=== PATIENT | male | born 1975 | race African-American/Black ===

== ENCOUNTER 2024-03-23 12:17 | Emergency (ER) | payer OTHER, SELFPAY ==
[2024-03-23 12:24] VITALS: BP 135/89; PULSE 62; RESP 16; TEMP 36.7; O2SAT 99; BMI 24.2
--- NOTE | 2024-03-23 12:39 | CRLHL7_ITS ---
For Patients: As a result of the Century Cures Act, medical imaging exams and procedure reports are released immediately into your electronic medical record. You may view this report before your referring provider. If you have questions, please contact your health care provider. Indication: Left upper quadrant abdominal pain for 5 weeks. Technique: CT of the abdomen and pelvis was performed following the administration of 74 mL Isovue 370. Comparison: None available. Findings: Visualized lung bases: Clear. Liver: Mild hepatic steatosis. Normal gallbladder. No biliary ductal dilation. Pancreas: Unremarkable. Spleen: Unremarkable. Adrenals: Unremarkable. Kidneys: Unremarkable. No nephrolithiasis or hydronephrosis. Aorta/IVC: Mild atherosclerotic aortic calcification without aneurysmal dilation. Lymph nodes: No lymphadenopathy. Bowel: Nonobstructed bowel. Normal appendix. Mild bowel wall thickening involving the distal duodenum and proximal jejunum without significant inflammatory stranding. No intraperitoneal free air. Trace pelvic free fluid. Pelvis: Unremarkable. Bones/body wall: Unremarkable for age. Impression: 1. Mild bowel wall thickening involving the distal duodenum and proximal jejunum, which can be seen in the setting of enteritis (infectious or inflammatory). 2. Mild hepatic steatosis. Please note that all CT scans at this facility use dose modulation, iterative reconstruction, and/or weight-based dosing when appropriate to reduce radiation dose to as low as reasonably achievable. Dictated by Mechelle Kapoor MD @ 03/23/2024 1:24:05 PM (Electronically Signed)
--- NOTE | 2024-03-23 12:40 | ED.ABDPAIN ---
HPI - Abdominal Pain General Chief Complaint: Abdominal Pain Stated Complaint: abdominal pain Time Seen by Provider: 03/23/24 12:18 History of Present Illness HPI narrative: Patient is a 49-year-old gentleman who for the last 4-5 weeks has had persistent left upper quadrant pain. The pain persists through his back but has no reflux symptoms. He has had no fevers no chills no night sweats. He has been trying to treat his symptoms with Prilosec. He does really notice any association with eating or drinking he has had no blood in his stool no changes bowel movements. He is up-to-date on his colonoscopy and has not lost any weight her head night sweats. No weight loss. Related Data Home Medications ?Medication ?Instructions ?Recorded ?Confirmed atorvastatin 20 mg tablet 20 mg PO DAILY 03/23/24 03/23/24 lisinopril 20 1 tab PO DAILY 03/23/24 03/23/24 mg-hydrochlorothiazide 12.5 mg tablet metformin 1,000 mg tablet 1,000 mg PO BID 03/23/24 03/23/24 Previous Rx's ?Medication ?Instructions ?Recorded sucralfate 1 gram tablet 1 g PO BID #60 tabs 03/23/24 Allergies Allergy/AdvReac Type Severity Reaction Status Date / Time No Known Drug Allergies Allergy Verified 03/23/24 13:18 Review of Systems Status of ROS Reports: 10 or more systems reviewed and unremarkable except as noted in History and below [facility] Medical History (Updated 03/23/24 @ 14:04 by Louis Rebolledo MD) Hypertension ?I10 - Essential (primary) hypertension (ICD-10) Diabetes mellitus ?E11.9 - Type 2 diabetes mellitus without complications (ICD-10) Social History Smoking Status: Never smoker How often do you have a drink containing alcohol: never AUDIT-C Alcohol total score: 0 Non-prescribed substance use: denies use Exam Narrative: Exam Narrative: EXAM GENERAL: Patient appears comfortable and well. EYES: No scleral icterus. LYMPH: No supraclavicular or cervical lymphadenopathy. SKIN: Visible skin seen during exam normal or with benign process only. EXT: No dependent lower extremity pedal edema. HEART: Regular rate and rhythm with no murmurs, rubs, or gallops. LUNGS: Clear to auscultation bilaterally with no crackles or wheezes. ABD: Soft, non tender, non distended. PSYCH: Good eye contact, speech is not pressured. Const: Vital Signs, click to edit/add: Vital Signs - 24 hr 03/23/24 12:24 Temperature 98.1 F Pulse Rate [Left P ulse Oximeter] 62 Respiratory Rate 16 Blood Pressure [Ri ght Upper Arm] 135/89 Pulse Oximetry 99 Oxygen Delivery Me thod Room Air Course Course ED Course: Saline lock placed. CBC CMP amylase UA CT abdomen pelvis pending. Vital Signs Vital signs: Initial Vital Signs Temperature 98.1 F 03/23/24 12:24 Temperature Source Temporal Artery Scan 03/23/24 12:24 Pulse Rate 62 03/23/24 12:24 Respiratory Rate 16 03/23/24 12:24 Blood Pressure 135/89 03/23/24 12:24 Blood Pressure Mean 104 03/23/24 12:24 Blood Pressure Position Sitting 03/23/24 12:24 Pulse Oximetry 99 03/23/24 12:24 Oxygen Delivery Method Room Air 03/23/24 12:24 Vital Signs Temperature 98.1 F 03/23/24 12:24 Pulse Rate 62 03/23/24 12:24 Respiratory Rate 16 03/23/24 12:24 Blood Pressure 135/89 03/23/24 12:24 Pulse Oximetry 99 03/23/24 12:24 Oxygen Delivery Method Room Air 03/23/24 12:24 Temperature 98.1 F 03/23/24 12:24 Pulse Rate 62 03/23/24 12:24 Respiratory Rate 16 03/23/24 12:24 Blood Pressure 135/89 03/23/24 12:24 Pulse Oximetry 99 03/23/24 12:24 Oxygen Delivery Method Room Air 03/23/24 12:24 MDM - Abdominal Pain MDM Narrative Medical decision making narrative: Patient is a 49-year-old gentleman with minimal risk factors for peptic ulcer disease who presents with left upper quadrant pain. Lab work is stable. He his CT of the abdomen pelvis shows some thickening in the distal duodenum and proximal jejunum consistent with enteritis. Workup was otherwise unremarkable. This time will have him increase his PPI to twice a day. Also sent in a prescription for sucralfate to take as directed. Differential diagnosis includes but not limited to peptic ulcer disease H pylori gastritis dyspepsia pancreatitis small-bowel obstruction. Lab Data Labs: Lab Results 03/23/24 Range/Units 12:55 WBC 5.55 (4.50-11.00) K/uL RBC 5.29 (4.30-5.90) m/uL Hgb 15.8 (13.5-17.5) gm/dL Hct 47.3 (37.0-53.0) % MCV 89 (80-100) fL MCH 30 (26-34) pg MCHC 33 (32-36) gm/dL RDW Coeff of Nathanael 11.8 (11.5-15.5) % Plt Count 300 (140-440) K/uL Neut % (Auto) 59.9 (42.0-72.0) % Lymph % (Auto) 25.0 (20-44) % Starr % (Auto) 11.5 H (0.0-11.0) % Eos % (Auto) 3.2 (0.0-7.0) % Baso % (Auto) 0.4 (0.0-3.0) % Neut # (Auto) 3.32 (1.7-7.0) K/uL Lymph # (Auto) 1.39 (0.90-2.90) K/uL Starr # (Auto) 0.60 (0.00-0.90) K/UL Eos # (Auto) 0.18 (0.00-0.50) K/uL Baso # (Auto) 0.02 (0.00-0.30) K/uL Abs Immat Gran (auto) 0.00 (0.00-0.30) K/uL Imm/Tot Granulo (auto) 0.0 % Sodium 137 (135-149) mmol/L Potassium 4.0 (3.6-5.1) mmol/L Chloride 100 (96-114) mmol/L Carbon Dioxide 31 (20-32) mmol/L Anion Gap 6 L (7-15) mEq/L BUN 10 (7-30) mg/dL Creatinine 0.9 (0.5-1.5) mg/dL Estimated Creat Clear 87.63 Estimated GFR 103 ml/min Glucose 87 (60-115) mg/dL Calcium 9.8 (8.4-10.6) mg/dL Total Bilirubin 1.1 (0.1-1.5) mg/dL AST 31 (12-35) U/L ALT 37 (4-50) U/L Alkaline Phosphatase 69 (40-150) U/L Total Protein 7.9 (6.0-8.3) g/dL Albumin 5.1 H (3.3-5.0) g/dL Amylase 118 H (18-89) U/L Discharge Plan Discharge Clinical Impression: Enteritis Patient Disposition: Home, Self-Care Condition: Stable Instructions: Enteritis (ED) Additional Instructions: Increase Prilosec [id number] to twice daily. Sucralfate sent to your pharmacy take as directed. Follow-up with your doctor within the next week to discuss Helicobacter pylori stool antigen versus EGD Activity Level: No Restrictions Discharge Diet: Regular Prescriptions: New sucralfate 1 gram tablet 1 g PO BID Qty: 60 2RF No Action atorvastatin 20 mg tablet 20 mg PO DAILY lisinopril-hydrochlorothiazide 20-12.5 mg tablet 1 tab PO DAILY metformin 1,000 mg tablet 1,000 mg PO BID Follow Up/Referrals: Cali Salcedo MD [Primary Care Provider] - Stand Alone Forms: [employer] Info Instructions
[2024-03-23 13:13] LABS: Basophils Absolute Auto 0.02 K/uL (0.00-0.30); Basophils Percent Auto 0.4 % (0.0-3.0); Eosinophils Absolute Auto 0.18 K/uL (0.00-0.50); Eosinophils Percent Auto 3.2 % (0.0-7.0); Hematocrit 47.3 % (37.0-53.0); Hemoglobin* 15.8 gm/dL (13.5-17.5); Lymphocytes Absolute Auto 1.39 K/uL (0.90-2.90); Mean Corpuscular HGB Conc 33 gm/dL (32-36); Mean Corpuscular Hemoglobin 30 pg (26-34); Mean Corpuscular Volume 89 fL (80-100); Monocytes Percent Auto 11.5 % (0.0-11.0); Neutrophils Absolute Auto 3.32 K/uL (1.7-7.0); Neutrophils Percent Auto 59.9 % (42.0-72.0); Platelet Count* 300 K/uL (140-440); RDW Coefficient of Variation % 11.8 % (11.5-15.5); Red Blood Count 5.29 m/uL (4.30-5.90); White Blood Count* 5.55 K/uL (4.50-11.00)
[2024-03-23 13:19] LABS: Slide Review Reflex No
[2024-03-23 13:35] LABS: Chloride* 100 mmol/L (96-114)
[2024-03-23 13:36] LABS: Albumin* 5.1 g/dL (3.3-5.0); Sodium* 137 mmol/L (135-149)
[2024-03-23 13:38] LABS: Amylase* 118 U/L (18-89); Anion Gap 6 mEq/L (7-15); Bilirubin Total* 1.1 mg/dL (0.1-1.5); Carbon Dioxide* 31 mmol/L (20-32); Creatinine* 0.9 mg/dL (0.5-1.5); Est. Creatinine Clearance* 87.63; Estimated Glomerular Filt Rate 103 ml/min
[2024-03-23 13:39] LABS: Alanine Aminotransferase* 37 U/L (4-50); Alkaline Phosphatase* 69 U/L (40-150); Aspartate Amino Transferase* 31 U/L (12-35); Blood Urea Nitrogen* 10 mg/dL (7-30); Calcium* 9.8 mg/dL (8.4-10.6); Glucose* 87 mg/dL (60-115); Total Protein* 7.9 g/dL (6.0-8.3)
[2024-03-23 14:14] LABS: Appearance Urine Clear (Clear); Bilirubin Urine Negative (Negative); Blood Urine Trace-intact (Negative); Color Urine Yellow (Yellow); Glucose Urine Negative (Negative); Ketones Urine Negative (Negative); Leukocyte Esterase Urine Negative (Negative); Nitrite Urine Negative (Negative); Protein Urine Negative (Negative); Specific Gravity Urine 1.015 (1.000-1.030); Urobilinogen Urine 0.2 (0.2-1.0)
[2024-03-23 14:37] LABS: RBC Urine 0-2 (0-2); WBC Urine 0-2 (0-5)
== END 2024-03-23 14:28 | disposition home or self-care (01) ==
PROVIDERS: Emergency Provider Internal Medicine; PCP Family Medicine
DX: K52.9 Noninfective gastroenteritis and colitis, unspecified (principal)
CPT/HCPCS: 36415; 74177; 80053; 81001; 81003; 82150; 85025; 99283; 99284; Q9967